=== PATIENT | female | born 1985 | race Caucasian/White ===

== ENCOUNTER 2020-12-23 08:07 | Outpatient (RCR) | payer SELFPAY | END 2020-12-26 23:59 | LOC: DC 08:07 | PROVIDERS: Visit Provider Obstetrics & Gynecology | DX: O24.410 Gestational diabetes mellitus in pregnancy, diet controlled (principal); Z3A.00 Weeks of gestation of pregnancy not specified ==

== ENCOUNTER 2020-12-23 08:34 | Outpatient (RCR) | payer BC, SELFPAY | END 2020-12-26 23:59 | LOC: DC 08:34 | PROVIDERS: Visit Provider Obstetrics & Gynecology | DX: O24.410 Gestational diabetes mellitus in pregnancy, diet controlled (principal); Z3A.00 Weeks of gestation of pregnancy not specified | CPT/HCPCS: 97802 ==

== ENCOUNTER 2020-12-29 16:22 | Outpatient (RCR) | payer BC, SELFPAY | END 2021-01-25 23:59 | LOC: DC 16:22 | PROVIDERS: Visit Provider Obstetrics & Gynecology | DX: O24.410 Gestational diabetes mellitus in pregnancy, diet controlled (principal); Z3A.00 Weeks of gestation of pregnancy not specified ==

== ENCOUNTER 2021-02-02 09:35 | Inpatient (IN) | payer BC, SELFPAY ==
--- NOTE | 2021-02-01 13:22 | PCM.HP.BLA ---
History and Physical Date of Admission: 02/02/21 Pre-Op History and Physical HPI: The patient is a 35 year old female presenting for pre-operative visit. She is scheduled for , for repeat elective cs 39.2 weeks on 02/02/21. Procedure discussed along with risks, benefits and complications. Other alternatives discussed for management. Consent form signed? Yes. PAST MEDICAL HISTORY PAST MEDICAL HISTORY Diagnosis Date ? Migraine PAST SURGICAL HISTORY PAST SURGICAL HISTORY Procedure Laterality Date ? DELIVERY ONLY ? PAST SURGICAL HISTORY OF wisdom teeth and root canal CURRENT MEDICATIONS Current Outpatient Medications Medication Sig Dispense Refill ? insulin NPH human (NOVOLIN N FLEXPEN) 100 unit/mL (3 mL) injection pen Inject 12 Units subcutaneously daily at bedtime. 15 mL 2 ? Insulin [place], Disposable, (BD ULTRA-FINE CARLIE PEN NEEDLE) 32 gauge x 5/32 1 Each four times daily. 120 Each 0 ? blood sugar diagnostic test strip 1 Strip four times daily. Use as instructed 120 Strip 9 ? Lancets lancets 1 Each four times daily. Use as instructed 120 Each 9 ? multivitamin (MARIANNE ) 65 mg iron- 1 mg tab Take 1 tablet by mouth daily with breakfast. ? MAGNESIUM CITRATE ORAL Take 166 mg by mouth. No current facility-administered medications for this visit. ALLERGIES: Nitrous Oxide PERSONAL HISTORY: SOCIAL HISTORY Social History Tobacco Use ? Smoking status: Former Smoker Types: Cigars Quit date: 12/06/2009 Years since quittin.1 ? Smokeless tobacco: Never Used ? Tobacco comment: occasional Vaping Use ? Vaping Use: Never used Substance Use Topics ? Alcohol use: Not Currently Alcohol/week: 1.3 standard drinks Types: 1 Mixed Drinks per week ? Drug use: Never FAMILY HISTORY: FAMILY HISTORY FAMILY HISTORY Problem Relation Age of Onset ? No Known Problems Mother ? No Known Problems Father ? Asthma Sister ? other (epilepsy) Sister ? No Known Problems Paternal Grandmother ? Emphysema Paternal Grandfather ? No Known Problems Son REVIEW OF SYMPTOMS: negative except as noted above PHYSICAL EXAMINATION: VITALS: Blood pressure 130/87, weight 194 lb (88 kg), last menstrual period 05/03/2020. GENERAL: The patient is well nourished, well hydrated in no acute distress. , The patient is oriented to time, place, and person. NECK: full range of motion IMPRESSION: @ 39+ weeks for repeat elective cs PLAN: Repeat elective Cs Pt has been counseled on risks/benefits and alternatives of surgery including but not limited to anesthesia, bleeding, infection, injury to pelvic structures including bowel, bladder, ureters and vessels. Pt wishes to proceed with surgery at this time. covid testing Pre and post op instructions reviewed I have reviewed and updated past medical and surgical history, medications and allergies Leonie Landa MD Routine Office Visit on 01/25/2021 Routine Office Visit on 01/25/2021 Note shared with patient
[2021-02-02] VITALS (16 sets, daily range): BP systolic 99–130; BP diastolic 49–80; PULSE 75–100; RESP 12–20; TEMP 36.1–36.8; O2SAT 95–100; BMI 32.4
[2021-02-02] MEDS: Lactated Ringers 1,000 ML 999 ML IV (10:15)
[2021-02-02 10:34] LABS: Absolute Lymphocyte Count 1.77 X10^3/uL (0.83-4.51); Absolute Neutrophil Count 6.7 X10^3/uL (2.0-7.7); Basophil# 0.05 X10^3/uL; Basophil% 0.5 % (0-1); Eosinophil# 0.07 X10^3/uL; Eosinophils% 0.8 % (0-5); Hematocrit 35.1 % (37-47); Hemoglobin 10.9 g/dL (12.0-15.0); Lymphocyte # 1.77 X10^3/ul (0.83-4.51); Lymphocyte % 19.3 % (19-41); Mean Corp Hgb Conc 31.1 g/dL (32-36); Mean Corpuscular Hgb 23.3 pg (27.0-32.0); Mean Platelet Vol. 11.2 fl (6.2-12.0); Monocyte# 0.53 X10^3/uL; Monocyte% 5.8 % (0-10); NRBC Flagged by Analyzer 0 % (0-5); Neutrophil # 6.68 X10^3/uL (2.7-7.7); Neutrophil % 73.1 % (47-70); Platelet Count 245 K/mm3 (150-450); RBC Distribution Width CV 14.8 % (11.6-14.6); Red Blood Count 4.68 M/mm3 (4.2-5.4); White Blood Count 9.2 K/mm3 (4.4-11.0)
[2021-02-02] MEDS: Acetaminophen 500 MG Tablet 1000 MG PO ×3 (11:06→23:45)
[2021-02-02 11:16] LABS: Bedside Glucose 80 mg/dL (70-110)
[2021-02-02] MEDS: Lactated Ringers 1,000 ML 150 ML IV (11:20)
[2021-02-02] MEDS: Sodium Citrate/Citric Acid 30 ML UDC PO (11:48)
--- NOTE | 2021-02-02 12:50 | OP.PCM_ITS ---
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 She was then placed in the supine position. She was prepped and draped in the normal sterile fashion. Anesthesia was found to be adequate. At this time a Pfannenstiel skin incision was made with a knife was carried down to the underlying layer of the fascia. The fascial incision was then extended laterally using curved Christianson scissor. attention was then turned to the superior aspect of the fascial edge was grasped with 2 straight [place] clamps tented up and the rectus muscle dissected off sharply using curved Christianson scissor. Attention was then turned to the inferior aspect where again Kevin clamps were placed in the rectus muscles were tented up and the fascia was dissected off sharply using the curved Christianson sc issor. Rectus muscles were then in the midline and peritoneum was entered sharply. Gentle opposing traction was placed. At this time the vesicouterine peritoneum was identified. Scalpel was used to make a uterine incision in a low transverse fashion. The uterus was then entered bluntly gentle opposing traction was placed to extend this incision. Membranes were ruptured clear. 's head was brought to the uterine incision was delivered atraumatically. delayed cord clamping performed. Cord was clamped and cut was handed to the waiting nursery team. The Placenta was removed from the uterus. The uterus was then removed from the abdominal cavity. The uterus was cleared of all clots and debris using a lap. At this time the uterine incision was reapproximated using #1 Vicryl in a running locked fashion. followed by a second imbricating layer with 1-0 vicryl. Hemostasis was appreciated. Posterior cul-de-sac was then cleared of all clots and debris. Uterus was placed back in the abdominal cavity. Gutters were cleared of all clots and debris. Uterine incision was reevaluated and noted to be of excellent hemostasis. At this time the peritoneum and muscle were grasped with Kellys reapproximated using #2 Vicryl suture in a running fashion. Fascia was then reapproximated using #1 Vicryl in a running fashion. Subcu layer was reapproximated with #2 0 plain gut suture in an interrupted fashion. Subcu layer was closed using 4-0 vicryl in a subcu fashion. Dry sterile dressing was applied. Instrument lap needle count correct ?2. Anticipated normal postoperative course. Presentation: Positive for Vertex Amniotic Membrane Rupture Type: Artificial Amniotic Fluid Description: Clear Placental Delivery Description: Expressed Placenta Disposition: [facility] Cord Vessel Description: 3 Vessels Cord Entanglement: None Infant A Gender: Female (1 minute): 9 (5 minute): 9 Delayed Cord Clamping: Yes Complications Risks of Surgery Discussed w/Patient: Bleeding, Anesthesia Risks, Infection, Need for Future C-Sections and Injury to surrounding structure(s) including bowel and bladder Complications: none
[2021-02-02] MEDS: Ketorolac 30 MG/ML Syringe IV ×2 (13:17→18:55)
[2021-02-02] MEDS: Oxytocin 30 units/NS 500 ml 30 UNITS/500 ML IV.SOLN 167 UNITS IV (13:20)
--- NOTE | 2021-02-02 13:39 | NURSING ---
Recovery BGT 104
[2021-02-02 14:05] LABS: Bedside Glucose 104 mg/dL (70-110)
[2021-02-02] MEDS: Lactated Ringers 1,000 ML 100 ML IV (16:19)
[2021-02-03] MEDS: 0.9% Saline Lock 10 ML Syringe IV ×2 (00:25→06:49)
[2021-02-03] MEDS: Ketorolac 30 MG/ML Syringe IV ×2 (00:25→06:49)
[2021-02-03] MEDS: Acetaminophen 500 MG Tablet 1000 MG PO ×3 (05:12→18:06)
[2021-02-03 05:13] VITALS: BP 94/48; PULSE 75; RESP 16; TEMP 36.6; O2SAT 100
[2021-02-03 05:33] LABS: Hematocrit 29.9 % (37-47); Hemoglobin 9.5 g/dL (12.0-15.0); Mean Corp Hgb Conc 31.8 g/dL (32-36); Mean Corpuscular Hgb 23.8 pg (27.0-32.0); Mean Corpuscular Volume 74.8 fL (81-99); Mean Platelet Vol. 11.1 fl (6.2-12.0); Platelet Count 223 K/mm3 (150-450); RBC Distribution Width CV 14.9 % (11.6-14.6); RBC Distribution Width SD 39.9 fl (35.1-43.9); White Blood Count 11.2 K/mm3 (4.4-11.0)
[2021-02-03 07:10] LABS: Bedside Glucose 103 mg/dL (70-110)
[2021-02-03 08:00] VITALS: BP 106/60; PULSE 76; RESP 16; TEMP 36.7; O2SAT 97
--- NOTE | 2021-02-03 09:07 | PCM.PN.OB ---
Subjective Subjective Patient seen at bedside, doing well. Patient reports good pain control. Mild lochia. Breast-feeding without complication. Passing flatus and voiding without difficulty. Patient would like to stay until tomorrow. Objective Data Objective Data Vital Signs: Vital Signs Temp Pulse Resp BP Pulse Ox 98.1 F 76 16 106/60 97 02/03/21 08:00 02/03/21 08:00 02/03/21 08:00 02/03/21 08:00 02/03/21 08:00 Oxygen Delivery Method Room Air Weight: 88.451 kg Body Mass Index (BMI) 32.4 Intake & Output: Intake and Output for Last 24 Hours 02/01/21 02/02/21 02/03/21 23:59 23:59 23:59 Intake Total 2351.55 / 2351.55 Output Total 750 / 750 Balance 1601.55 / 1601.55 Lab / Micro Data Result Diagrams: 02/03/21 05:24 Labs: Laboratory Results - last 24 hr 02/02/21 10:15: WBC 9.2, RBC 4.68, Hgb 10.9 L, Hct 35.1 L, MCV 75.0 L, MCH 23.3 L, MCHC 31.1 L, RDW Std Deviation 40.0, RDW Coeff of Danielle 14.8 H, Plt Count 245, MPV 11.2, Immature Gran % (Auto) 0.500, Neut % (Auto) 73.1 H, Lymph % (Auto) 19.3, [place] % (Auto) 5.8, Eos % (Auto) 0.8, Baso % (Auto) 0.5, Absolute Neuts (auto) 6.7, Absolute Lymphs (auto) 1.77, Nucleated RBC % 0 02/02/21 10:15: Blood Type A POSITIVE, Antibody Screen NEGATIVE 02/02/21 10:54: POC Glucose 80 02/02/21 13:35: POC Glucose 104 02/03/21 05:24: WBC 11.2 H, RBC 4.00 L, Hgb 9.5 L, Hct 29.9 L, MCV 74.8 L, MCH 23.8 L, MCHC 31.8 L, RDW Std Deviation 39.9, RDW Coeff of Danielle 14.9 H, Plt Count 223, MPV 11.1 02/03/21 06:48: POC Glucose 103 Physical Exam Narrative Incision dressing is dry and intact. Abdomen is soft mildly tender to palpation. Const alert and oriented x3 General Appearance: cooperative HEENT normocephalic Neck General: normal visual inspection GI soft to palpation and non-distended GI Narrative: Fundus firm Extremity normal to inspection and no calf tenderness Skin no rashes or lesions noted Neuro oriented x3 and CN's II-XII intact bilaterally Psych mental status grossly normal Assessment & Plan (1) Delivery by section: PLAN: POD# 1 , Doing well Routine care pain mgmt monitor VS ambulation likely dc tomorrow
[2021-02-03] MEDS: Senna/Docusate Sodium 1 Tablet PO (12:00)
[2021-02-03 12:03] VITALS: BP 112/58; PULSE 83; RESP 14; TEMP 36.7; O2SAT 96
[2021-02-03] MEDS: Ibuprofen 600 MG Tablet PO ×2 (14:23→20:26)
[2021-02-03 20:28] VITALS: BP 116/64; PULSE 85; RESP 16; TEMP 36.6; O2SAT 97
[2021-02-04] MEDS: Acetaminophen 500 MG Tablet 1000 MG PO ×2 (00:29→06:07)
[2021-02-04 02:17] VITALS: BP 105/56; PULSE 77; RESP 16; TEMP 36.6
[2021-02-04] MEDS: Ibuprofen 600 MG Tablet PO ×2 (02:22→08:32)
--- NOTE | 2021-02-04 07:19 | PCM.PN.OB ---
Subjective Subjective Patient seen at bedside. Feeling good. Ambulating and voiding without difficulty. Had BM last night. Pain is controlled with Motrin and Tylenol. Lochia decreased. infant with minimal support. Denies any CP, SOB, dizziness, or headache. Desires discharge home today. Objective Data Objective Data Vital Signs: Vital Signs Temp Pulse Resp BP Pulse Ox 97.8 F 77 16 105/56 L 97 02/04/21 02:17 02/04/21 02:17 02/04/21 02:17 02/04/21 02:17 02/03/21 20:28 Oxygen Delivery Method Room Air Weight: 195 lb Body Mass Index (BMI) 32.4 Intake & Output: Intake and Output for Last 24 Hours 02/02/21 02/03/21 02/04/21 23:59 23:59 23:59 Intake Total 2351.55 / 2351.55 Output Total 750 / 750 Balance 1601.55 / 1601.55 Lab / Micro Data Result Diagrams: 02/03/21 05:24 ROS Eyes Eyes: Denies blurry vision, change in vision or spots in vision ENT HEENT: Denies dizziness or headache(s) Cardiovascular Cardiovascular: Denies abdominal pain, chest pain or dyspnea Respiratory/Chest Respiratory/Chest: Denies cough, dyspnea, shortness of breath at rest or shortness of breath with exertion Gastrointestinal Gastrointestinal: Denies abdominal pain, diarrhea or vomiting Genitourinary Genitourinary: Denies change in urinary stream, difficulty urinating or dysuria Musculoskeletal Musculoskeletal: Reports none Integumentary Integumentary: Denies rash Neurologic Neurologic: Denies dizziness, headache(s), memory loss or weakness Physical Exam Narrative Dressing is dry and intact Const alert and no apparent distress General Appearance: cooperative and comfortable Exam Limitations: no limitations HEENT normocephalic Eyes General Eye: normal appearance of both eyes Neck full ROM General: normal visual inspection Chest Chest: symmetrical chest wall rise Resp normal respiratory effort and normal air movement Effort and Inspection: symmetric chest movement Auscultation: clear to auscultation bilaterally Cardio regular rate and regular rhythm GI normal to inspection, nondistended, normoactive bowel sounds Back/Spine normal ROM Extremity full ROM and no calf tenderness General Extremity: normal exam except as noted Skin no rashes or lesions noted Neuro CN's II-XII intact bilaterally Psych mental status grossly normal Assessment & Plan (1) Delivery by section: (2) Patient is a currently breast-feeding mother: PLAN: POD 2 Repeat C/S Pain control Routine care Breast feeding support D/C home with follow up in office for incision check
--- NOTE | 2021-02-04 07:29 | PCM.DC.SUM ---
Providers Date of Admission: 02/02/21 Reason For Visit: REPEAT C SECTION DELIVERY Diagnosis Discharge Diagnosis (1) Delivery by section: Status: Acute (2) Patient is a currently breast-feeding mother: Status: Acute Code(s): Z39.1 - Encounter for care and examination of lactating mother Medications at Discharge Home Medications prenat.vits,crys,[id number] 2 tab PO DAILY 02/02/21 Hospital Course Operations section Summary of Care Provided Hospital Course: Patient here for a repeat section. Hospital course was uneventful. Physical Exam Narrative Dressing is dry and intact Const alert and no apparent distress General Appearance: cooperative and comfortable Exam Limitations: no limitations HEENT normocephalic Eyes General Eye: normal appearance of both eyes Neck full ROM General: normal visual inspection Chest Chest: symmetrical chest wall rise Resp normal respiratory effort and normal air movement Effort and Inspection: symmetric chest movement Auscultation: clear to auscultation bilaterally Cardio regular rate and regular rhythm GI normal to inspection, nondistended, normoactive bowel sounds Back/Spine normal ROM Extremity full ROM and no calf tenderness General Extremity: normal exam except as noted Skin no rashes or lesions noted Neuro CN's II-XII intact bilaterally Psych mental status grossly normal Weight / BMI Weight Weight: 195 lb Body Mass Index (BMI) 32.4 ABG / Lab / Microbiology Data Result Diagrams: 02/03/21 05:24 D/C Instructions Discharge Diet: No restrictions May resume sexual activity in: 6-8 weeks Weight Bearing Status: Weight bearing as tolerated Lifting Restrictions: 20 lbs Call your doctor if your incision/area has: Continuous Slow Oozing, Increased Pain/ Swelling, Increased Redness, Foul Smelling Discharge and Swelling at the incision site Call your doctor if you observe: Fever of 101 or Higher, Inability to urinate, Using more than 1 pad per hour, Shortness of breath, Chest pain, Calf discomfort and Uncontrolled pain Remove Dressing in: 5 days Cleanse incision/area with: Soap & Water and Keep Dressing Clean & Dry When: 1 week in office for incision check or sooner if needed 6 weeks Meaningful Use Info Meaningful Use Diagnoses (Choose all that apply): None applicable Discharge Plan Admission Admit Date/Time: 02/02/21 09:35 Primary Reason for Your Visit: Repeat C/S Attending Provider: Neyhart-Landa,Leonie Discharge Orders/Prescriptions Prescriptions: Continued prenat.vits,crys,[id number] Tablet 2 tab PO DAILY RF: 0 Discontinued magnesium Tablet 2 tab PO DAILY RF: 0 insulin NPH-regular hum s-syn 100 unit/mL (70-30) Cartridge See Rx Instructions .ROUTE .COMPLEX RF: 0 Disposition Disposition (needs filled in before D/C Order can be placed): Home, Self Care
[2021-02-04] MEDS: Senna/Docusate Sodium 1 Tablet PO (08:32)
[2021-02-04 08:59] VITALS: BP 114/63; PULSE 79; RESP 16; TEMP 36.4; O2SAT 96
--- NOTE | 2021-02-08 18:51 | NURSING ---
Follow up phone call complete. Spoke with patient. She is feeling pretty good. Bandage from is clean & dry. Vaginal bleeding has decreased. No headaches, visual changes, flu like symptoms, or emotional changes. Baby is breastfed and eating well. No questions or concerns with .
== END 2021-02-04 11:15 | disposition home or self-care (01) | DRG 788 ==
PROVIDERS: Admitting Provider Obstetrics & Gynecology; Visit Provider Obstetrics & Gynecology
PROC: 10D00Z1 Extraction of Products of Conception, Low, Open Approach (ICD-10-PCS; CPT 59514; principal; 2021-02-02 11:45)
DX: O34.211 Maternal care for low transverse scar from previous cesarean delivery (principal); O24.424 Gestational diabetes mellitus in childbirth, insulin controlled; Z3A.39 39 weeks gestation of pregnancy; Z37.0 Single live birth; Z87.59 Personal history of other complications of pregnancy, childbirth and the puerperium; Z87.891 Personal history of nicotine dependence
CPT/HCPCS: 82962; 85025; 85027; 86850; 86900; 86901; 99218; J7120; A4216; G0378; J2405